=== PATIENT | female | born 1970 | race Caucasian/White ===

== ENCOUNTER 2021-02-02 20:10 | Emergency (ER) | payer MEDICAID ==
--- NOTE | 2021-02-02 20:24 | ED Physician Documentation ---
PD HPI CHEST PAIN - Stated complaint Stated Complaint: CHEST TIGHTNESS/PALPITATIONS - Chief complaint Chief Complaint: Cardiac - History obtained from History obtained from: Patient - History of Present Illness Timing - onset: How many months ago (has noted feeling of chest pressure intermittently the past few months. Mostly noted when resting or trying to sleep. Has some dyspnea with it. More often symptoms the past week. Occasional feeling of surges in chest. She thought rhythm irregular couple of times. No cough. No edema.) Timing - onset during: Rest Timing - details: Gradual onset, Intermittant Quality: Tightness. No: Pressure Location: Substernal, Left chest Radiation: Left upper extremity. No: Back Improved by: No: Rest (notes it less when active.) Worsened by: No: Exertion, Inspiration, Movement Associated symptoms: Shortness of air (at times but not consistently), Palpitations. No: Nausea, Vomiting, Feeling faint / dizzy, General Weakness, Cough Similar symptoms before: Has not had sx before Recently seen: Not recently seen Review of Systems Constitutional: denies: Fever, Chills, Myalgias Nose: denies: Rhinorrhea / runny nose, Congestion Cardiac: reports: Chest pain / pressure, Palpitations. denies: Pedal edema, Calf pain Respiratory: reports: Dyspnea. denies: Cough, Wheezing Skin: denies: Rash, Lesions Neurologic: denies: Generalized weakness, Near syncope, Altered mental status, Headache PD PAST MEDICAL HISTORY - Past Medical History Past Medical History: No Cardiovascular: None Respiratory: None Neuro: None Endocrine/Autoimmune: None - Present Medications Home Medications: Ambulatory Orders Medication Instructions Recorded Confirmed Albuterol Sulf [Ventolin Hfa 1 - 2 puffs INH Q4HR PRN #1 inhaler 02/02/21 Inhaler] - Allergies Allergies/Adverse Reactions: Allergies Allergy/AdvReac Type Severity Reaction Status Date / Time Penicillins Allergy Rash Verified 02/02/21 20:16 - Living Situation Living Situation: reports: With spouse/s.o. Living Arrangement: reports: At home - Social History Does the pt smoke?: No Does the pt drink ETOH?: No Does the pt have substance abuse?: No - Family History Family history: reports: CAD. denies: Sudden , Aortic aneursym PD ED PE NORMAL - Vitals Vital signs reviewed: Yes - General General: Alert and oriented X 3, No acute distress, Well developed/nourished - Neck Neck: Supple, no meningeal sign, No adenopathy - Cardiac Cardiac: RRR, No murmur - Respiratory Respiratory: Clear bilaterally, Other (no wheezing noted. no chestwall tenderness. ) - Abdomen Abdomen: Soft, Non tender - Derm Derm: Normal color, Warm and dry - Extremities Extremities: Normal ROM s pain, No edema, No calf tenderness / cord - Neuro Neuro: Alert and oriented X 3, No motor deficit, No sensory deficit, Normal speech Results - Vitals Vitals: Vital Signs - 24 hr 02/02/21 02/02/21 20:16 21:00 Temperature 36.7 C Heart Rate 64 71 Respiratory 19 20 Rate Blood Pressure 128/67 112/64 O2 Saturation 100 Oxygen O2 Source Room air - EKG (time done) 20:19 Rate: Rate (enter#) (65) Rhythm: NSR [place]: Normal Intervals: Normal [facility] QRS: Normal Ischemia: Normal ST segments. No: ST elevation c/w ischemia, ST depression - Tele (time rhythm occurred) ED duration Telemetry / rhythm strip: NSR, Other (occasional single PVCs. ) - Labs Labs: Laboratory Tests 02/02/21 02/02/21 02/02/21 20:54 20:54 20:54 WBC 6.1 RBC 3.99 L Hgb 12.4 Hct 37.2 MCV 93.2 MCH 31.1 H MCHC 33.3 RDW 13.2 Plt Count 211 MPV 10.2 Neut # (Auto) 3.3 Lymph # (Auto) 2.2 [place] # (Auto) 0.4 Eos # (Auto) 0.2 Baso # (Auto) 0.0 Absolute Nucleated RBC 0.00 Nucleated RBC % 0.0 Sodium 137 Potassium 3.8 Chloride 101 Carbon Dioxide 30 Anion Gap 6.0 BUN 22 H Creatinine 0.8 Estimated GFR (MDRD) 76 L Glucose 127 H Calcium 9.1 Magnesium 2.4 Total Bilirubin 0.4 AST 21 ALT 19 Alkaline Phosphatase 27 L Troponin I High Sens < 2.3 L B-Natriuretic Peptide Total Protein 6.7 Albumin 4.1 Globulin 2.6 Albumin/Globulin Ratio 1.6 Lipase 50 TSH 02/02/21 02/02/21 20:54 20:54 WBC RBC Hgb Hct MCV MCH MCHC RDW Plt Count MPV Neut # (Auto) Lymph # (Auto) [place] # (Auto) Eos # (Auto) Baso # (Auto) Absolute Nucleated RBC Nucleated RBC % Sodium Potassium Chloride Carbon Dioxide Anion Gap BUN Creatinine Estimated GFR (MDRD) Glucose Calcium Magnesium Total Bilirubin AST ALT Alkaline Phosphatase Troponin I High Sens B-Natriuretic Peptide 21 Total Protein Albumin Globulin Albumin/Globulin Ratio Lipase TSH 3.19 - Rads (name of study) chest xray Radiology: Prelim report reviewed (normal), See rad report PD MEDICAL DECISION MAKING - ED course Complexity details: reviewed results, re-evaluated patient, considered differential, d/w patient Departure - Departure Disposition: Home, Self Care Clinical Impression: Chest discomfort, PVC's (premature ventricular contractions) Condition: Stable Record reviewed to determine appropriate education?: Yes Instructions: ED Chest Pain Atypical Unkn Cause Follow-Up: MACKENZIE LIZARRAGA ARNP [Primary Care Provider] - Prescriptions: Albuterol Sulf [Ventolin Hfa Inhaler] 1 - 2 puffs INH Q4HR PRN #1 inhaler PRN Reason: Shortness Of Air/Wheezing Comments: Your basic tests here including EKG, chest x-ray, blood tests (blood count, chemistry panel, troponin BNP and thyroid) did not show any acute abnormality. No signs of irregular heartbeat at this time. No signs of heart enlargement nor any heart failure or heart muscle injury. At this point I do not know the cause of your symptoms but no obvious heart process nor lung abnormality. Follow-up with your primary care regarding further assessment. Given some history of allergies in the past, consideration could be for some tightness for inflammation of the airways such as reactive airway disease. As such you could try an inhaler periodically and see if it has an improvement in your symptoms. Heart rhythm irregularities can be intermittent and so following up with your primary care regarding the idea of a wearable heart monitor that would record your rhythm over the duration of a week to see if any abnormalities occurs in that time. Otherwise continue normal intake and hydration and medications. Discharge Date/Time: 02/02/21 22:04
[2021-02-02 21:07] LABS: BASOPHILS % (AUTO) 0.3 %; EOSINOPHILS # (AUTO) 0.2 10^3/uL (0.0-0.7); EOSINOPHILS % (AUTO) 2.8 %; HCT - HEMATOCRIT 37.2 % (37.0-47.0); HGB - HEMOGLOBIN 12.4 g/dL (12.0-16.0); LYMPHOCYTES # (AUTO) 2.2 10^3/uL (1.5-3.5); LYMPHOCYTES % (AUTO) 36.1 %; MEAN CORPUSCULAR HEMOGLOBIN 31.1 pg (27.0-31.0); MEAN CORPUSCULAR HGB CONC 33.3 g/dL (32.0-36.0); MEAN CORPUSCULAR VOLUME 93.2 fL (81.0-99.0); MEAN PLATELET VOLUME 10.2 fL (7.9-10.8); MONOCYTES # (AUTO) 0.4 10^3/uL (0.0-1.0); MONOCYTES % (AUTO) 6.9 %; NEUTROPHILS # (AUTO) 3.3 10^3/uL (1.5-6.6); NEUTROPHILS % (AUTO) 53.7 %; PLT - PLATELET COUNT 211 10^3/uL (130-450); RED BLOOD COUNT 3.99 10^6/uL (4.20-5.40); RED CELL DISTRIBUTION WIDTH 13.2 % (12.0-15.0); WHITE BLOOD COUNT 6.1 x10^3/uL (4.8-10.8)
[2021-02-02 21:21] VITALS: BP 112/64
[2021-02-02 21:25] LABS: ALBUMIN 4.1 g/dL (3.2-5.5); ALBUMIN/GLOBULIN RATIO 1.6 (1.0-2.2); BILIRUBIN,TOTAL 0.4 mg/dL (0.2-1.0); CALCIUM 9.1 mg/dL (8.5-10.3); CREATININE 0.8 mg/dL (0.4-1.0); MAGNESIUM 2.4 mg/dL (1.7-2.8); POTASSIUM 3.8 mmol/L (3.5-5.0); TOTAL PROTEIN 6.7 g/dL (6.7-8.2)
--- NOTE | 2021-02-02 21:27 | XRAY Report ---
PROCEDURE: Chest 1 View X-Ray INDICATIONS: Chest pain TECHNIQUE: One view of the chest was acquired. COMPARISON: FINDINGS: Surgical changes and devices: None. Lungs and pleura: No pleural effusions or pneumothorax. Lungs are clear. Mediastinum: Mediastinal contours appear normal. Heart size is normal. Bones and chest wall: No suspicious bony lesions. Overlying soft tissues appear unremarkable. IMPRESSION: Normal for age, source of current symptoms is not seen. Dominant O Reviewed by: Madi Mora MD on 02/02/2021 9:25 PM PDT Approved by: Madi Mora MD on 02/02/2021 9:25 PM PDT Station ID: [id number]
== END 2021-02-02 22:04 | disposition home or self-care (01) ==
LOC: ED 20:10
DX: R07.89 Other chest pain (principal); I49.3 Ventricular premature depolarization
CPT/HCPCS: 36415; 80053; 83690; 83735; 83880; 84443; 84484; 85025; 93005; 99284